=== PATIENT | female | born 1960 | race Caucasian/White ===

== ENCOUNTER 2022-07-28 17:42 | Emergency (ER) | payer BC ==
[~2022-07-28] VITALS: Ht 167.6 cm; Wt 79.4 kg
--- NOTE | 2022-07-28 18:34 | NUR ---
TO ER 15,SENT HERE BY DR GALVAN FOR AN ELEVATED D-DIMER (1.03) DRAWN 07/23/22
[2022-07-28 19:28] VITALS: BP 144/70
--- NOTE | 2022-07-28 19:28 | NUR ---
Patient discharged to home in stable condition. Written and verbal after care instructions given. Patient verbalizes understanding of instruction.
== END 2022-07-28 19:29 | disposition home or self-care (01) ==
LOC: ER 17:51
DX: M25.562 Pain in left knee (principal); I10 Essential (primary) hypertension; Z60.2 Problems related to living alone
CPT/HCPCS: 93971-TC